=== PATIENT | female | born 1965 | race Hispanic/Latino ===

== ENCOUNTER 2018-09-29 12:35 | Outpatient (CLI) | payer MEDICAID ==
[2018-09-29 13:39] LABS: Blood Urea Nitrogen 9 mg/dL (7-17)
== END 2018-09-29 12:36 | disposition home or self-care (01) ==
LOC: CT 12:35
PROVIDERS: ATTEND Radiology Diagnostic Radiology
DX: I70.213 Atherosclerosis of native arteries of extremities with intermittent claudication, bilateral legs (principal)
CPT/HCPCS: 36415; 82565; 84520

== ENCOUNTER 2018-11-15 06:23 | Day surgery (SDC) | payer MEDICAID ==
[2018-11-15 07:16] LABS: Basophils # (Auto) 0.1 K/mm3 (0.0-0.1); Basophils % (Auto) 0.9 % (0.0-1.8); Eosinophils # (Auto) 0.2 K/mm3 (0.0-0.4); Eosinophils % (Auto) 2.8 % (0.0-4.3); Hematocrit 37.4 % (30.3-42.9); Hemoglobin 13.1 gm/dl (10.1-14.3); Lymphocytes # (Auto) 1.6 K/mm3 (1.2-5.4); Lymphocytes % (Auto) 20.9 % (13.4-35.0); Mean Corpuscular HGB Conc 35 % (30-34); Mean Corpuscular Volume 97 fl (79-97); Monocytes # (Auto) 0.6 K/mm3 (0.0-0.8); Monocytes % (Auto) 7.4 % (0.0-7.3); Platelet Count 278 K/mm3 (140-440); Red Blood Count 3.84 M/mm3 (3.65-5.03); Red Cell Distribution Width 14.9 % (13.2-15.2)
[2018-11-15 07:28] LABS: INR 1.07 (0.87-1.13); Partial Thromboplastin Time 30.2 Sec. (24.2-36.6)
[2018-11-15 07:30] LABS: Calcium 8.6 mg/dL (8.4-10.2)
[2018-11-15] MEDS ORDERED: NACL 0.9% 500 ML 500 ML ONE ×2 (07:35→12:28)
--- NOTE | 2018-11-15 08:21 | Anesthesia Consultation ---
Anesthesia Consult and Med Hx Date of service: 11/15/18 - Airway Anesthetic Teeth Evaluation: Dentures (upper and lower), Edentulous ROM Head & Neck: Adequate Mental/Hyoid Distance: Adequate Mallampati Class: Class III Intubation Access Assessment: Possibly Difficult - Pre-Operative Health Status ASA Pre-Surgery Classification: ASA3 Proposed Anesthetic Plan: MAC - Pulmonary Hx Smoking: Yes (2 pack/day x 30 years) Hx Respiratory Symptoms: Yes SOB: Yes COPD: Yes (SpO2 92% on RA) Hx Sleep Apnea: Yes (prescribed, not using CPAP) - Cardiovascular System Hx Peripheral Vascular Disease: Yes (PVD with foot ulcers) - Central Nervous System Hx Back Pain: Yes Hx Psychiatric Problems: Yes (depression) - Other Systems Hx Obesity: Yes
--- NOTE | 2018-11-15 08:23 | Anesthesia Day of Surgery ---
Anesthesia Day of Surgery - Day of Surgery Patient Examined: Yes Patient H&P Reviewed: Yes Patient is NPO: Yes
[2018-11-15] MEDS ORDERED: DIPRIVAN 10 MG/ML 1,000 MG/100 ML BOTTLE IV ONE (09:07)
[2018-11-15] MEDS ORDERED: DILAUDID ONE ×2 (09:09→11:56)
[2018-11-15] MEDS ORDERED: VERSED ONE (09:09)
[2018-11-15] MEDS ORDERED: VANCOMYCIN 1,250 MG in NACL 0.9% 250ML 250 ML IV ONE (09:15)
[2018-11-15] MEDS: NACL 0.9% 500 ML 500 ML IV SCH ×2 (09:42→12:29)
[2018-11-15] MEDS ORDERED: XYLOCAINE 1%/ EPI 1:100,000 INFILTRATI ONE (09:42)
[2018-11-15] MEDS ORDERED: HEPARIN 10,000 UNITS/10 ML ONE (09:42)
[2018-11-15] MEDS ORDERED: HEPARIN/NS 5000 UNIT/500ML(CATH LAB) 1,000 ML IR ONE (09:42)
[2018-11-15] MEDS ORDERED: VANCOMYCIN/NS 1 GM/250 ML 1 GM/250 ML BAG IV NR (10:00)
[2018-11-15] MEDS ORDERED: HEPARIN IR ONE (10:36)
[2018-11-15] MEDS ORDERED: XYLOCAINE/EPI 1% 1:50,000 (OR) INFILTRATI ONE (10:36)
[2018-11-15] MEDS ORDERED: NACL 0.9% IR ONE (10:36)
[2018-11-15] MEDS ORDERED: HEPARIN 10,000 UNITS/10 ML IV ONE (10:44)
--- NOTE | 2018-11-15 11:24 | Operative Report ---
Operative Report Operative Report: EXAM: 1. Ultrasound guided access of the right lower extremity 2. Selection of the abdominal aorta with aortography 3. Angiography of the right lower extremity 4. Angioplasty of the right common iliac artery with an 8 mm x 40 mm angioplasty balloon and 9 mm x 40 mm angioplasty balloon 5. Closure of the right common femoral artery with a 6 Fr proglide DATE: 11/15/18 CHANGE MANAGEMENT EXPERT: CHUCHO MOLINA MD INDICATION: Nonhealing ulcers of the lower extremities with abnormal arterial duplex of the right lower extremity concerning for iliac occlusive lesion. MEDICATIONS: Please see nursing report for full details. DEVICES: 8 mm x 40 mm angioplasty balloon 9 mm x 40 mm angioplasty balloon CONTRAST: See laboratory animal facility supervisor report for full details. PROCEDURE: The risks, benefits, and alternatives were discussed with the patient; written informed consent was obtained. Patient was brought to the angiography suite and both groins were prepped and draped in sterile fashion. Under direct ultrasound guidance, the right common femoral artery was evaluated with ultrasound was patent. Under direct ultrasound guidance, the artery was accessed with a 21-gauge micropuncture needle. 0.018 inch wire was passed into the aorta. Needle was exchanged for transitional dilator. Wire was exchanged for 0.035 inch wire. Transitional dilators exchange for a 6 Canadian sheath. Digital subtraction angiography was performed demonstrating an appropriate puncture, above the bifurcation and below the inferior epigastric artery. Right common femoral artery, profunda femoral artery, superficial femoral artery, popliteal artery, anterior tibial artery, tibioperoneal trunk, posterior tibial artery, and peroneal artery were patent. The external iliac artery was patent. The abdominal aorta was selected with a flush catheter and digital subtraction angiography was performed and ensuring patency of the infrarenal abdominal aorta, left common iliac artery, and bilateral internal iliac arteries. There is an 80% occlusive lesion in the right proximal common iliac artery. This was probably 1-2 cm distal to the ostium. The patient was heparinized. 8 mm x 40 mm angioplasty balloon is used to perform angioplasty of the right common iliac artery. Digital subtraction angiography was performed demonstrating 30-50% residual narrowing. 9 mm x 40 mm angioplasty was used to perform angioplasty of the right common iliac artery. Digital subtraction angiography demonstrated less than 20% residual narrowing. Repeat angiography was then performed from the groin sheath which demonstrated no change in runoff and no distal embolization. Sheath was then exchanged for 6 Canadian Pro-glide which is used to close the arteriotomy achieving near immediate hemostasis. Sterile dressing applied. Pressure dressing applied. Patient tolerated the procedure well. No immediate postprocedure complication. FINDINGS: Please see procedure note above. IMPRESSION: 1. Successful angioplasty of the right common iliac artery. 2. Successful selection of the abdominal aorta. 3. Successful ultrasound-guided access and closure of the right common femoral artery with right lower extremity angiography.
--- NOTE | 2018-11-15 11:24 | Short Stay Summary ---
Short Stay Documentation Date of service: 11/15/18 Narrative H&P: 53 year old female with monophasic arterial doppler signals down the entire right leg with nonhealing wounds of the lower extremities who presents for revascularization of the right lower extremity. - History Principal diagnosis: PVD with nonhealing ulcers H&P: obtained from office - Allergies and Medications Current Medications: Allergies Penicillins Allergy (Intermediate, Verified 11/15/18 07:11) Rash amoxicillin [From Augmentin] Adverse Reaction (Verified 11/15/18 07:11) Vomiting clavulanic acid [From Augmentin] Adverse Reaction (Verified 11/15/18 07:11) Vomiting Home Medications Medication Instructions Recorded Confirmed Last Taken Type Albuterol Sulfate [Proventil Hfa] 2 puff INHALATION QID 11/15/18 11/15/18 11/14/18 History Aspirin EC 81 mg PO DAILY 11/15/18 11/15/18 11/14/18 History 81mg Cholecalciferol Vit D3 [Vitamin D3 2 tab PO DAILY 11/15/18 11/15/18 11/14/18 History 1,000 UNIT TAB] 2 tabs DULoxetine [Cymbalta] 60 mg PO DAILY 11/15/18 11/15/18 11/14/18 History 60mg Docusate Sodium [Stool Softener] 100 mg PO DAILY 11/15/18 11/15/18 11/14/18 History 100mg Fenofibrate 160 mg PO DAILY 11/15/18 11/15/18 11/14/18 History 160mg Gabapentin [Neurontin] 2 tab PO QID 11/15/18 11/15/18 11/14/18 History 2 tabs LORazepam [Ativan] 1 mg PO BID 11/15/18 11/15/18 11/14/18 History 1mg Meloxicam [Mobic] 15 mg PO DAILY 11/15/18 11/15/18 11/14/18 History 15mg Trazodone HCl [traZODone] 300 mg PO HS 11/15/18 11/15/18 11/14/18 History 300mg methOCARBAMOL [Robaxin TAB] 1 tab PO TID 11/15/18 11/15/18 11/14/18 History 750mg oxyCODONE /ACETAMINOPHEN [Percocet 10 - 325 mg PO BID 11/15/18 11/15/18 11/15/18 04:00 History 5/325 mg] 1 tab Active Medications Sodium Chloride (Nacl 0.9% 500 Ml) 500 mls @ 50 mls/hr IV DIRECT MAGGIE Last Admin: 11/15/18 09:42 Dose: 50 mls/hr Documented by: - Physical exam General appearance: no acute distress, obese Lungs: Normal air movement Extremities: normal temperature, normal color, abnormal (nonhealing wounds of the lower extremities) - Brief post op/procedure progress note Date of procedure: 11/15/18 Pre-op diagnosis: PVD with nonhealing wounds Post-op diagnosis: same Procedure: 1. Ultrasound guided access of the right lower extremity 2. Selection of the abdominal aorta with aortography 3. Angiography of the right lower extremity 4. Angioplasty of the right common iliac artery with an 8 mm x 40 mm angioplasty balloon and 9 mm x 40 mm angioplasty balloon 5. Closure of the right common femoral artery with a 6 Fr proglide Anesthesia: local (w/ conscious sedation) Surgeon: CHUCHO MOLINA Estimated blood loss: minimal Condition: stable - Hospital course Hospital course: Will keep flat for 4 hrs after procedure. Will keep pressure dressing on until 11/16/18 AM. Loaded on plavix. - Disposition Condition at discharge: Fair Disposition: DC-01 TO HOME OR SELFCARE - Discharge Diagnoses (1) Atherosclerosis of right lower extremity with ulceration of calf Status: Acute (2) Venous insufficiency of both lower extremities Status: Acute (3) Ulcer of leg, chronic, left Status: Acute (4) Ulcer of leg, chronic, right Status: Acute Short Stay Discharge Plan Activity: advance as tolerated (do not walk up stairs for 1 week) Weight Bearing Status: Weight Bear as Tolerated (do not lift more than 10 lbs for the next week) Diet: diabetic Wound: keep clean and dry Follow up with: СЕРГЕЙ BUTCHER MD [Primary Care Provider] - 7 Days Forms: Post Arteriogram Instruct Prescriptions: Oxycodone HCl/Acetaminophen [Percocet 10/325 mg] 1 each PO Q6HR PRN #5 tablet PRN Reason: Pain Clopidogrel [Plavix] 75 mg PO QDAY #30 tablet Pantoprazole [Protonix] 40 mg PO QDAY #30 tablet
[2018-11-15] MEDS ORDERED: DILAUDID IV PRN (11:26)
[2018-11-15] MEDS ORDERED: PLAVIX PO ONE (12:00)
[2018-11-15] MEDS ORDERED: PLAVIX ONE (12:13)
--- NOTE | 2018-11-15 14:20 | Post Anesthesia Evaluation ---
- Post Anesthesia Evaluation Patient Participated: Yes Airway Patent: Yes Stable Respiratory Function: Yes Nausea/Vomiting: No Temp > 96.8F: Yes Pain Manageable: Yes Adequeate Hydration: Yes Anesthesia Complications: No
[2018-11-15 15:07] VITALS: BP 121/54
== END 2018-11-15 15:45 | disposition home or self-care (01) ==
LOC: CATH 06:23
PROVIDERS: ATTEND Radiology Diagnostic Radiology
DX: I70.232 Atherosclerosis of native arteries of right leg with ulceration of calf (principal); I87.301 Chronic venous hypertension (idiopathic) without complications of right lower extremity; I87.2 Venous insufficiency (chronic) (peripheral); L97.919 Non-pressure chronic ulcer of unspecified part of right lower leg with unspecified severity; E78.00 Pure hypercholesterolemia, unspecified; J44.9 Chronic obstructive pulmonary disease, unspecified; F17.210 Nicotine dependence, cigarettes, uncomplicated; G47.30 Sleep apnea, unspecified; E66.9 Obesity, unspecified; M19.90 Unspecified osteoarthritis, unspecified site; Z98.890 Other specified postprocedural states; Z88.0 Allergy status to penicillin; Z88.6 Allergy status to analgesic agent; Z79.82 Long term (current) use of aspirin; Z79.899 Other long term (current) drug therapy; Z90.49 Acquired absence of other specified parts of digestive tract; Z68.41 Body mass index [BMI] 40.0-44.9, adult; Z88.8 Allergy status to other drugs, medicaments and biological substances; Z82.49 Family history of ischemic heart disease and other diseases of the circulatory system; Z79.01 Long term (current) use of anticoagulants
CPT/HCPCS: 36415; 37220; 75625; 75710; 76937; 80048; 85025; 85610; 85730; 96374; C1725; C1760; C1769; C1887; C1894; J1170; J1644; J2250; J2704; J3370; J7040; J7050; Q9967

== ENCOUNTER 2019-07-26 15:40 | Emergency (ER) | payer MEDICAID ==
--- NOTE | 2019-07-26 16:26 | Event Note ---
ED Screening Note Date of service: 07/26/19 Time: 16:23 ED Screening Note: 54 y/o while female comes in for lower leg pain from wounds. History DM type 1. This initial assessment/diagnostic orders/clinical plan/treatment(s) is/are subject to change based on patients health status, clinical progression and re- assessment by fellow clinical providers in the ED. Further treatment and workup at subsequent clinical providers discretion. Patient/guardian urged not to elope from the ED as their condition may be serious if not clinically assessed and managed. Initial orders include:
[2019-07-26 17:03] LABS: Basophils # (Auto) 0.1 K/mm3 (0.0-0.1); Basophils % (Auto) 0.7 % (0.0-1.8); Eosinophils # (Auto) 0.3 K/mm3 (0.0-0.4); Eosinophils % (Auto) 2.9 % (0.0-4.3); Hematocrit 37.4 % (30.3-42.9); Hemoglobin 12.4 gm/dl (10.1-14.3); Lymphocytes # (Auto) 1.6 K/mm3 (1.2-5.4); Lymphocytes % (Auto) 17.7 % (13.4-35.0); Mean Corpuscular HGB Conc 33 % (30-34); Mean Corpuscular Volume 91 fl (79-97); Monocytes # (Auto) 0.7 K/mm3 (0.0-0.8); Monocytes % (Auto) 7.2 % (0.0-7.3); Platelet Count 395 K/mm3 (140-440); Red Blood Count 4.12 M/mm3 (3.65-5.03); Red Cell Distribution Width 16.5 % (13.2-15.2)
[2019-07-26 17:24] LABS: Albumin 3.6 g/dL (3.9-5); Calcium 9.5 mg/dL (8.4-10.2)
[2019-07-26 17:26] LABS: Erythrocyte Sedimentation Rate 38 mm/Hr (0-20)
[2019-07-26] MEDS ORDERED: traMADol 50 MG TAB PO ONE (18:36)
--- NOTE | 2019-07-26 21:21 | Emergency Department Report ---
- General Chief Complaint: Extremity Problem,Nontraumatic Stated Complaint: LEG PAIN Time Seen by Provider: 07/26/19 20:46 Source: EMS Mode of arrival: Stretcher Limitations: Other - History of Present Illness Initial Comments: 54-year-old morbidly obese female with a known past medical history chronic lower extremity wounds due to stasis dermatitis currently care of Dr. Hines presents emergency department seeking pain control. She is due to follow-up with Dr. Hines tomorrow reports no fever chills or sweats no nausea vomiting no chest pain palpitations no calf pain no trauma or new injury no change in symptoms. Wounds continue to drain a serous fluid and have continued swelling and occasional dull throbbing pains which is having a pain episode at current. Extremity Location: Left: Lower Leg, Right: Lower Leg Place: home Patient Tetanus UTD: Yes Associated Symptoms: none Treatments Prior to Arrival: other - Related Data Home Medications Medication Instructions Recorded Confirmed Last Taken Albuterol Sulfate [Proventil Hfa] 2 puff INHALATION QID 11/15/18 11/15/18 11/14/18 Aspirin EC 81 mg PO DAILY 11/15/18 11/15/18 11/14/18 81 mg Cholecalciferol Vit D3 [Vitamin D3 2 tab PO DAILY 11/15/18 11/15/18 11/14/18 1,000 UNIT TAB] 2 tabs DULoxetine [Cymbalta] 60 mg PO DAILY 11/15/18 11/15/18 11/14/18 60 mg Docusate Sodium [Stool Softener] 100 mg PO DAILY 11/15/18 11/15/18 11/14/18 100 mg Fenofibrate 160 mg PO DAILY 11/15/18 11/15/18 11/14/18 160 mg Gabapentin 2 tab PO QID 11/15/18 11/15/18 11/14/18 2 tabs LORazepam [Ativan] 1 mg PO BID 11/15/18 11/15/18 11/14/18 1 mg Meloxicam [Mobic] 15 mg PO DAILY 11/15/18 11/15/18 11/14/18 15 mg Trazodone HCl [traZODone] 300 mg PO HS 11/15/18 11/15/18 11/14/18 300 mg methOCARBAMOL [Robaxin TAB] 1 tab PO TID 11/15/18 11/15/18 11/14/18 750 mg oxyCODONE /ACETAMINOPHEN [Percocet 10 - 325 mg PO BID 11/15/18 11/15/18 11/15/18 04:00 5/325 mg] 1 tab Previous Rx's Medication Instructions Recorded Last Taken Type Clopidogrel [Plavix] 75 mg PO QDAY #30 tablet 11/15/18 Unknown Rx Oxycodone HCl/Acetaminophen 1 each PO Q6HR PRN #5 tablet 11/15/18 Unknown Rx [Percocet 10/325 mg] Pantoprazole [Protonix] 40 mg PO QDAY #30 tablet 11/15/18 Unknown Rx Chlorhexidine Gluconate [Hibiclens] 5 ml TP BID #240 liquid 07/26/19 Unknown Rx Mupirocin [Bactroban 2%] 1 applic TP TID #1 tube 07/26/19 Unknown Rx Allergies Allergy/AdvReac Type Severity Reaction Status Date / Time Penicillins Allergy Intermediate Rash Verified 11/15/18 07:11 amoxicillin [From Augmentin] AdvReac Vomiting Verified 11/15/18 07:11 clavulanic acid AdvReac Vomiting Verified 11/15/18 07:11 [From Augmentin] ED Review of Systems ROS: Stated complaint: LEG PAIN Other details as noted in HPI Comment: All other systems reviewed and negative ED Past Medical Hx - Past Medical History Hx Arthritis: Yes Hx COPD: Yes (SpO2 92% on RA) - Surgical History Hx Cholecystectomy: Yes - Social History Smoking Status: Current Every Day Smoker - Medications Home Medications: Home Medications Medication Instructions Recorded Confirmed Last Taken Type Albuterol Sulfate [Proventil Hfa] 2 puff INHALATION QID 11/15/18 11/15/18 11/14/18 History Aspirin EC 81 mg PO DAILY 11/15/18 11/15/18 11/14/18 History 81 mg Cholecalciferol Vit D3 [Vitamin D3 2 tab PO DAILY 11/15/18 11/15/18 11/14/18 History 1,000 UNIT TAB] 2 tabs Clopidogrel [Plavix] 75 mg PO QDAY #30 tablet 11/15/18 Unknown Rx DULoxetine [Cymbalta] 60 mg PO DAILY 11/15/18 11/15/18 11/14/18 History 60 mg Docusate Sodium [Stool Softener] 100 mg PO DAILY 11/15/18 11/15/18 11/14/18 History 100 mg Fenofibrate 160 mg PO DAILY 11/15/18 11/15/18 11/14/18 History 160 mg Gabapentin 2 tab PO QID 11/15/18 11/15/18 11/14/18 History 2 tabs LORazepam [Ativan] 1 mg PO BID 11/15/18 11/15/18 11/14/18 History 1 mg Meloxicam [Mobic] 15 mg PO DAILY 11/15/18 11/15/18 11/14/18 History 15 mg Oxycodone HCl/Acetaminophen 1 each PO Q6HR PRN #5 tablet 11/15/18 Unknown Rx [Percocet 10/325 mg] Pantoprazole [Protonix] 40 mg PO QDAY #30 tablet 11/15/18 Unknown Rx Trazodone HCl [traZODone] 300 mg PO HS 11/15/18 11/15/18 11/14/18 History 300 mg methOCARBAMOL [Robaxin TAB] 1 tab PO TID 11/15/18 11/15/18 11/14/18 History 750 mg oxyCODONE /ACETAMINOPHEN [Percocet 10 - 325 mg PO BID 11/15/18 11/15/18 11/15/18 04:00 History 5/325 mg] 1 tab Chlorhexidine Gluconate [Hibiclens] 5 ml TP BID #240 liquid 07/26/19 Unknown Rx Mupirocin [Bactroban 2%] 1 applic TP TID #1 tube 07/26/19 Unknown Rx ED Physical Exam - General Limitations: Other General appearance: alert, in no apparent distress - Respiratory Respiratory exam: Present: normal lung sounds bilaterally. Absent: respiratory distress - Cardiovascular Cardiovascular Exam: Present: regular rate, normal rhythm. Absent: systolic murmur, diastolic murmur, rubs, gallop - Extremities Exam Extremities exam: Present: tenderness, normal capillary refill, pedal edema - Expanded Lower Extremity Exam Left Lower Leg exam: Present: tenderness, erythema. Absent: palpable cord (Stasis dermatitis is noted with ulcerative wounds x2 noted as well.), Ryan's sign Neuro vascular tendon exam: Absent: abnormal cap refill 1 - Ulcerative wound to this region about 2 to 3-1/2 cm in width 4 cm length cloudy serous discharge from the wound no calf pain no lymphangitis noted 2 - Ulcerative wound - Neurological Exam Neurological exam: Present: alert, oriented X3 ED Medical Decision Making - Lab Data Result diagrams: 07/26/19 16:44 07/26/19 16:43 Critical care attestation.: If time is entered above; I have spent that time in minutes in the direct care of this critically ill patient, excluding procedure time. ED Disposition Disposition: DC-01 TO HOME OR SELFCARE Is pt being admited?: No Does the pt Need Aspirin: No Condition: Stable Instructions: Chronic Wound Care (ED), Wound Healing and Your Diet (ED), Pressure Ulcer (ED) Additional Instructions: Please keep your appointment with Dr. Hines for further evaluation of your wound care. Please continue the medications that he has started for you please utilize antimicrobial soap to help your wound management and the ointment as well. Prescriptions: Mupirocin [Bactroban 2%] 1 applic TP TID #1 tube Chlorhexidine Gluconate [Hibiclens] 5 ml TP BID #240 liquid Referrals: PRIMARY CARE, [Primary Care Provider] - 3-5 Days KANCHAN HINES MD [Staff Physician] - 3-5 Days
[2019-07-26 21:28] VITALS: BP 150/58
[2019-07-26] MEDS ORDERED: oxyCODONE /ACETAMINOPHEN 5-325MG TAB ONE (21:59)
[2019-07-26] MEDS ORDERED: oxyCODONE /ACETAMINOPHEN 5-325MG TAB PO ONE (22:00)
[2019-07-27] MEDS ORDERED: oxyCODONE /ACETAMINOPHEN 5-325MG TAB PO ONE (01:40)
[2019-07-27] MEDS ORDERED: oxyCODONE /ACETAMINOPHEN 5-325MG TAB ONE (01:42)
== END 2019-07-27 01:45 | disposition home or self-care (01) ==
LOC: ED 15:40
DX: L97.829 Non-pressure chronic ulcer of other part of left lower leg with unspecified severity (principal); I87.2 Venous insufficiency (chronic) (peripheral); M19.91 Primary osteoarthritis, unspecified site; J44.9 Chronic obstructive pulmonary disease, unspecified; F17.200 Nicotine dependence, unspecified, uncomplicated; Z90.49 Acquired absence of other specified parts of digestive tract; Z88.0 Allergy status to penicillin; Z88.1 Allergy status to other antibiotic agents; Z88.8 Allergy status to other drugs, medicaments and biological substances; Z79.899 Other long term (current) drug therapy
CPT/HCPCS: 36415; 80053; 82140; 85025; 85652; 99283